=== PATIENT | female | born 1965 | race Caucasian/White ===

== ENCOUNTER 2021-06-14 14:58 | Emergency (ER) | payer MEDICARE, MEDICAID, SELFPAY ==
[2021-06-14] VITALS (15 sets, daily range): BP systolic 85–125; BP diastolic 49–96; PULSE 79–147; RESP 16–27; TEMP 36.5; O2SAT 95–99
--- NOTE | 2021-06-14 15:00 | DI.CT_ITS ---
Exam(s) CT HEAD CERVICAL SPINE WO EXAM: CT HEAD CERVICAL SPINE WO CLINICAL HISTORY: fall at rehab, posterior head and neck pain. TECHNIQUE: Imaging Protocol: Axial computed tomography images with coronal and sagittal reformatted images were created and reviewed COMPARISON: No exams were available for comparison FINDINGS: Head CT: Left-sided frontal craniotomy defect. No skull fracture. No intraparenchymal hemorrhage, mass or in farct. No subdural or epidural hematoma. Mild atrophy. Cervical Spine CT BONES: Vertebral body heights are maintained. Alignment is normal. There is no evidence of acute frac ture. Degenerative disc changes and facet degenerative changes are seen . SOFT TISSUES: No paraspinal hematoma. The airway appears intact. No pneumothorax is seen at the lung apices. IMPRESSION: Head CT: Left frontal craniotomy. No acute abnormality. C-spine CT: Degenerative changes, no acute abnormality. RADIATION DOSE DELIVERED: 1,481.29mGy.cm Total DLP DATA REPOSITORY: All CT scans at this facility are submitted to the National Radiology Data Registry (NRDR) Dose Index Registry (DIR) with the [employer] ([employer]). RADIATION OPTIMIZATION: All CT scans at this facility use at least one of these dose optimization te chniques: automated exposure control; mA and/or kV adjustment per patient size (includes targeted exa ms where dose is matched to clinical indication); or iterative reconstruction.
--- NOTE | 2021-06-14 15:00 | DI.RAD_ITS ---
Exam(s) XR CHEST 2V PA LATERAL EXAM: XR CHEST 2V PA LATERAL CLINICAL HISTORY: fall at rehab, pain TECHNIQUE: 2D digital imaging was performed. COMPARISON: No exams were available for comparison FINDINGS: MEDIASTINUM: Normal. HEART: Normal. PULMONARY VASCULATURE: Normal. LUNGS: Clear. PLEURAL SPACE: No pleural effusion or pneumothorax. BONE:Unremarkable for age. IMPRESSION: No acute abnormality. DATA REPOSITORY: RADIATION DOSE DELIVERED:
--- NOTE | 2021-06-14 15:15 | W.ED.GENAD ---
Discharge Plan Disposition Patient Disposition: SNF ([facility]) [facility] Condition: Stable Discharge Details Clinical Impression: Low serum albumin, Weakness, Physical deconditioning, Thrombocytopenia Primary Care Provider: Jesus Omer ED Provider: Marcio Major Home Meds and New Rx's Prescriptions: Continued carvedilol 6.25 mg Tablet 6.25 mg PO BID RF: 0 lamotrigine [Lamictal] 200 mg Tablet 200 mg PO .QHS RF: 0 prazosin 1 mg Capsule 3 mg PO .QHS RF: 0 ondansetron HCl 4 mg Tablet 4 mg PO .Q6HRS PRNRF: 0 hydroxyzine HCl 50 mg Tablet 50 mg PO .Q8HRS PRNRF: 0 lamotrigine [Lamictal] 25 mg Tablet 50 mg PO .QHS RF: 0 epinephrine 0.3 mg/0.3 mL Auto-Injector 0.3 mg IM PRNRF: 0 cholecalciferol (vitamin D3) 25 mcg (1,000 unit) Tablet 25 mcg PO DAILY RF: 0 ferrous gluconate 324 mg (38 mg iron) Tablet 324 mg PO DAILY RF: 0 Discharge Instructions Instructions: Weakness (ED) Additional Instructions: Your work-up in the emergency department included a CAT scan of the head and neck, chest x-ray, and laboratory analysis. Your evaluated by care management. You have no evidence of acute injury. Continue your rehabilitation efforts. Medical Decision Making 56-year-old female who is recovering from recent liver failure and CHF. Records reveal accompanying ascites. She now has been at [facility] for 3 weeks. She had a fall today in which she was standing slipped and hit her head on a radiator. No scalp laceration. There is minimal posterior neck tenderness. Screening laboratories obtained to rule out any mild encephalopathy, although the patient is mentating normally. She is most concerned with returning to the facility as she has been quite unhappy there. She was seen by care management for this concern. Diagnostics: CT of the head without acute findings, degenerative disease of the cervical spine present. Please see the formal report. Laboratories: Slight elevation of AST and ALT of 198/111. Ammonia is negative. Albumin 2.7. Electrolytes unremarkable and CBC with no and thrombocytopenia. Patient seen by care management as above. She is stable and appropriate for discharge back to rehabilitation facility this evening. Lab Data Lab results reviewed: Yes I reviewed the patient's lab results. Labs: Laboratory Results - last 24 hr 06/14/21 06/14/21 06/14/21 15:45 15:45 15:45 WBC 7.18 RBC 3.91 L Hgb 12.7 Hct 39.9 MCV 102.0 H Sodium 136 Potassium 3.8 Chloride 100 Carbon Dioxide 24.8 Anion Gap 11.2 H BUN 9 Creatinine 0.9 Estimated GFR/1.73 m2 >= 60.00 Glucose 96 Calcium 9.1 Total Bilirubin 1.3 H AST 198 H ALT 111 H Alkaline Phosphatase 185 H Ammonia < 10 L Total Protein 7.1 Albumin 2.7 L HPI General Mode of arrival: EMS. Date/Time Provider Initiated Documentation: 06/14/21 14:59. Limitations to Documentation: no limitations. Information obtained by: patient, EMS and old records reviewed. History of Present Illness 56 year old F presents to the emergency department with the chief complaint of Weakness, at rehab, fell and hit her head on a radiator, described as moderate, Quality is described as dull and constant, and is localized to the head. Patient reports no radiation. Patient started experiencing this hour(s) and it has been constant. No relieving factors improve symptom(s), No exacerbating factors reported . Patient notes headaches; denies shortness of breath, syncope and weakness. Patient did receive the following treatments prior to arrival, none Related Data Home Medications Medication Instructions Recorded Confirmed carvedilol 6.25 mg PO BID 06/14/21 06/14/21 cholecalciferol (vitamin D3) 25 mcg PO DAILY 06/14/21 06/14/21 epinephrine 0.3 mg IM PRN 06/14/21 ferrous gluconate 324 mg PO DAILY 06/14/21 06/14/21 hydroxyzine HCl 50 mg PO .Q8HRS PRN 06/14/21 06/14/21 lamotrigine [Lamictal] 50 mg PO .QHS 06/14/21 06/14/21 lamotrigine [Lamictal] 200 mg PO .QHS 06/14/21 06/14/21 ondansetron HCl 4 mg PO .Q6HRS PRN 06/14/21 06/14/21 prazosin 3 mg PO .QHS 06/14/21 06/14/21 Allergies Allergy/AdvReac Type Severity Reaction Status Date / Time acetaminophen Allergy Unverified 06/14/21 15:17 bee venom protein (honey bee) Allergy Unverified 06/14/21 15:20 codeine Allergy Unverified 06/14/21 15:17 erythromycin base Allergy Unverified 06/14/21 15:18 gentamicin Allergy Unverified 06/14/21 15:18 hydrocodone Allergy Unverified 06/14/21 15:19 mirtazapine Allergy Unverified 06/14/21 15:19 phenobarbital Allergy Unverified 06/14/21 15:19 Sulfa (Sulfonamide Allergy Unverified 06/14/21 15:20 Antibiotics) hymenoptera Allergy Uncoded 06/14/21 15:21 General Stated Complaint: GenMedical MELY: 3 Review of Systems Narrative: Has been using a walker and slowly getting stronger. States she spent in rehab for approximately 3 weeks. 7 systems reviewed and otherwise negative. No new change to speech, no new motor dysfunction. PFSH All Active Problems (Updated 06/14/21 @ 16:41 by Marcio Major MD) Low serum albumin (Acute) Weakness (Acute) Physical deconditioning (Acute) Thrombocytopenia (Chronic) Social History Smoking risk assessment performed?: No Exam Narrative Exam Narrative: GEN: awake, alert, oriented 3. Pleasant, well groomed, interactive. HEAD: Normocephalic, atraumatic ENT: Mucous membranes moist, oropharynx unremarkable, External ear exam unremarkable EYES: PERRL, EOMI NECK: Full ROM, minimal tenderness lower posterior cervical spine without or deformity. The back is nontender without step-off or deformity. CHEST/RESP: Nontender, clear to auscultation bilateral, no wheeze/rhonchi/rales CARDIOVASCULAR: RRR, no murmur, rub bora. 2+ Rad pulse bilateral ABDOMEN: Soft, nontender, no mass. +Bowel sounds EXT: Full ROM, no edema, no rash. Few areas of ecchymosis bilateral upper extremity. Left lower extremity exam gravity and resistance in both hip extension, extension of the knee. Motor 5 out of 5 throughout. Neuro: Grossly normal neurologic exam, conversant, interactive. Visual correa intact to confrontation. No motor deficits. Psych: Speech fluent, thoughts congruent, affect normal Course Vital Signs Vital signs: Vital Signs Temperature 36.5 C 06/14/21 15:00 Pulse 86 06/14/21 15:00 Respiratory Rate 16 06/14/21 15:00 Blood Pressure 125/59 L 06/14/21 15:00 Pulse Oximetry 96 06/14/21 15:00 Temperature 36.5 C 06/14/21 15:00 Temperature Source Skin 06/14/21 15:00 Pulse 86 06/14/21 15:00 Respiratory Rate 16 06/14/21 15:00 Respiratory Effort 06/14/21 15:00 Blood Pressure 125/59 L 06/14/21 15:00 Blood Pressure Position Supine 06/14/21 15:00 Pulse Oximetry 96 06/14/21 15:00 Oxygen Delivery Method Room Air 06/14/21 15:00 Oxygen Flow Rate 0 06/14/21 15:00 Pain Level 7 06/14/21 15:00 Comment 06/14/21 15:00
[2021-06-14] MEDS: LORazepam 0.5 MG TAB PO (15:30)
[2021-06-14] MEDS: Ibuprofen 600 MG TAB PO (15:30)
[2021-06-14 16:04] LABS: HCT 39.9 % (36.0-46.0); HGB 12.7 g/dL (11.2-15.7); MCH 32.5 pg (27.0-33.0); MCHC 31.8 % (32.0-36.0); MPV 12.2 fL (8.0-11.0); RBC 3.91 10^6/uL (3.93-5.22); RDW 18.5 % (11.7-14.6); RDW-SD 69.2 fL; WBC 7.18 10^3/uL (4.4-10.8)
[2021-06-14 16:21] LABS: ALT 111 U/L (14-59); AST 198 U/L (15-37); Albumin 2.7 g/dL (3.4-5.0); Alkaline Phosphatase 185 U/L (46-116); Ammonia < 10 umol/L (11-32); Anion Gap 11.2 mmol/L (3-11); BUN 9 mg/dL (7-18); Bilirubin, Total 1.3 mg/dL (0.2-1.0); CO2 24.8 mmol/L (21.0-32.0); CREATININE 0.9 mg/dL (0.55-1.02); Calcium 9.1 mg/dL (8.5-10.1); Chloride 100 mmol/L (98-107); Glucose 96 mg/dL (74-106); Potassium 3.8 mmol/L (3.5-5.1); Sodium 136 mmol/L (136-145); Total Protein 7.1 g/dL (6.4-8.2)
--- NOTE | 2021-06-14 16:41 | CMPROGNOTE_ITS ---
- If Service Date Differs Date of service: 06/14/21 Time of Service: 16:41 Care Management Progress Note S/O: meets with Angelika at the request of Dr. Major, ED provider. Angelika reports she has been staying at the [facility] for the past 3 weeks and she hates it there. She states she is not going back to the Rehab and requests a transfer to [facility]. CM explains there needs to be a medical reason for her to remain at [facility] or to transfer to [facility] [place] [place], otherwise she will have to return to the Rehab. CM helps her explore other options, such as moving in with family. Angelika shares she and her boyfriend, Jared, are supposed to get and the plan is for her to move in with him. She goes on to say that she cannot stay with him now because tomorrow is the 1st of the month and that's when he gets his money and drinks lots of alcohol. She says he is not very nice to her when he is intoxicated. She has a son and a sister who reside in [place] but for reasons unclear to CM, she cannot move in with either of them. A: Angelika is a 56 year old woman who presents in the ED for weakness, physical deconditioning and thrombocytopenia. P: Angelika is medically cleared. She is returning to the [facility]. She is transported by [facility] by Rehab staff.
== END 2021-06-14 17:20 | disposition skilled nursing facility (03) ==
PROVIDERS: Emergency Provider Emergency Medicine; PCP Family Medicine
DX: E88.09 Other disorders of plasma-protein metabolism, not elsewhere classified (principal); R53.1 Weakness; D69.6 Thrombocytopenia, unspecified; R53.81 Other malaise; M54.2 Cervicalgia; R07.89 Other chest pain; W01.198A Fall on same level from slipping, tripping and stumbling with subsequent striking against other object, initial encounter
CPT/HCPCS: 36415; 80053; 85027; 99284; 70450; 71046; 72125; 82140